=== PATIENT | male | born 1960 | race African-American/Black ===

== ENCOUNTER 2016-02-13 20:33 | Emergency (ER) | payer OTHER ==
[2016-02-13 20:48] VITALS: BP 126/82; PULSE 76; TEMP 98.4; BMI 66.9
--- NOTE | 2016-02-13 21:54 | PDOC ---
History of Present Illness - General Chief Complaint: Chest Pain Stated Complaint: CHEST PAIN Time Seen by Provider: 02/13/16 21:23 History Source: Patient Exam Limitations: No Limitations - History of Present Illness Initial Comments: 02/13/16 21:50 55yo Male patient presents to ED c/o chest pressure throughout the day. Patient reports he was recently admitted 2 weeks ago for irregular heart rate. Patient states he was given Cardizem and dx: with Afib. He does not remember the director of event management name that treated him. He was prescribed medications but states he does not like taking medications, so he has not taking anything except ASA 81 mg yesterday. Patient denies n/v/d, back pain, sweating, diff breathing, fever, dysuria, hematuria, rash, or any other complaints at this time. Dr. Galvan- PCP. Presenting Symptoms: Chest Pain, Other (Chest Pressure) Timing/Duration: reports: constant Severity/Quality: reports: mild Location: reports: substernal Chest Pain Radiation: reports: no radiation Activities at Onset: reports: no specific activity Prior Chest Pain/Cardiac Workup: reports: Echocardiography, Stress Test Modifying Factors: worse with: antacids, breathing, coughing, defecating, eating , exercise, lying down, morphine, movement, nitroglycerin, oxygen, palpation, rest, other Nitro Today/Relief: Yes: no nitro taken today Aspirin Received prior to arrival (Core Measure): Yes: 81 mg x 1, provided at home (Yesterday) Associated Symptoms: Yes: Heartburn. No: Back Pain, Nausea, Vomiting Past History - Travel Traveled outside of the country in the last 30 days: No Close contact w/someone who was outside of country & ill: No - Past Medical History Allergies/Adverse Reactions: Allergies Allergy/AdvReac Type Severity Reaction Status Date / Time No Known Allergies Allergy Verified 02/13/16 20:45 Home Medications: Ambulatory Orders NK [No Known Home Medication] 02/13/16 Cardiac Disorders: Yes (Afib) - Surgical History Abdominal Surgery: Yes (hernia repair) - Immunization History Immunization Up to Date: Yes - Psycho/Social/Smoking Cessation Hx Anxiety: No Suicidal Ideation: No Smoking History: Never smoked Have you smoked in the past 12 months: No Number of Cigarettes Smoked Daily: 0 Information on smoking cessation initiated: No Hx Alcohol Use: No Drug/Substance Use Hx: No Substance Use Type: None Hx Substance Use Treatment: No Cardiac Specific PMH - Complaint Specific PMHX Abdominal Aortic Aneurysm: No Angina: No Cardiac Arrhythmia: No Cardiac Stent: No GERD: No Myocardial Infarction: No Pacemaker: No Pulmonary Embolus: No Valvular Heart Disease: No Peripheral Vascular Disease: No Review of Systems - Review of Systems Able to Perform ROS?: Yes Is the patient limited Occitan proficient: No Constitutional: No: Chills, Fever Respiratory: No: Shortness of Breath, SOB with Exertion Cardiac (ROS): Yes: Chest Pain, Other (Chest Pressure) ABD/GI: No: Constipated, Diarrhea, Nausea, Vomiting : No: Burning, Dysuria Musculoskeletal: No: Back Pain Integumentary: No: Rash Neurological: No: Headache, Numbness, Paresthesia, Tingling All Other Systems: Reviewed and Negative *Physical Exam - Vital Signs Last Vital Signs Temp Pulse Resp BP Pulse Ox 98.4 F 76 14 126/82 98 02/13/16 20:46 02/13/16 20:46 02/13/16 20:46 02/13/16 20:46 02/13/16 20:46 - Physical Exam General Appearance: Yes: Nourished, Appropriately Dressed Neck: positive: Trachea midline, Supple Respiratory/Chest: positive: Lungs Clear, Normal Breath Sounds Cardiovascular: positive: Regular Rhythm, Regular Rate Gastrointestinal/Abdominal: positive: Normal Bowel Sounds, Soft Musculoskeletal: positive: Normal Inspection. negative: CVA Tenderness, Muscle Spasm Extremity: positive: Normal Capillary Refill, Normal Inspection, Normal Range of Motion Integumentary: positive: Normal Color, Dry, Warm Neurologic: positive: event coordinator marketing and sales II-XII NML intact, Fully Oriented, Alert, Normal Mood/ Affect, Normal Response, Motor Strength 5/5 Heart Score/ECG Review - History History: Slightly suspicious - Electrocardiogram EKG: Normal - Age Age: 45-65 - Risk Factors Risk Factors Heart Score: Yes Hx Hypercholesterolemia, Yes Hx Hypertension Based on the list above the patient has:: 1-2 risk factors - Troponin Troponin: </= normal limit - Score Heart Score - Total: 2 - ECG Impressions Normal ECG: Yes Non-specific ST Elevation: No Ischemic Changes: No Bradycardia: No Torsades samuel Pointes: No WPW: No ED Treatment Course - LABORATORY CBC & Chemistry Diagram: 02/13/16 22:30 02/13/16 22:30 - ADDITIONAL ORDERS Additional order review: Laboratory Results 02/13/16 22:30 Sodium 140 Potassium 3.7 Chloride 106 Carbon Dioxide 27 Anion Gap 7 L BUN 16 Creatinine 0.8 Creat Clearance w eGFR > 60 Random Glucose 94 Calcium 8.7 Total Bilirubin 0.6 D AST 12 L ALT 15 Alkaline Phosphatase 65 Creatine Kinase 136 Troponin I < 0.02 Total Protein 7.3 Albumin 3.7 02/13/16 22:30 RBC 5.49 MCV 88.3 MCHC 32.6 RDW 13.1 MPV 8.8 - Medications Given in the ED: ED Medications Discontinued Medications Generic Name Dose Route Start Last Admin Trade Name Freq PRN Reason Stop Dose Admin Aspirin 324 mg 02/13/16 23:24 02/13/16 23:26 Asa - PO 02/13/16 23:25 324 mg ONCE ONE Administration Progress Note - Progress Note Progress Note: Patient report Chest Pain has subsided. Will d/c home. Patient has appointment with PCP tomorrow. Heart score 2. EKG WNL. *DC/Admit/Observation/Transfer Diagnosis at time of Disposition: Chest pain Qualifiers: Chest pain type: unspecified Qualified Code(s): R07.9 - Chest pain, unspecified - Discharge Dispostion Disposition: HOME Condition at time of disposition: Stable Admit: No - Referrals Referrals: Bonnie Galvan [Primary Care Provider] - Brayan Macdonald MD [Staff Physician] - - Patient Instructions Printed Discharge Instructions: DI for Atypical Chest Pain Additional Instructions: FOLLOW UP WITH DR. MACDONALD (CARDIOLOGY). CALL TO SCHEDULE APPOINTMENT. RETURN IF SYMPTOMS WORSEN OR ANY CONCERNS FOR FURTHER EVALUATION. Print Language: JAMAICAN
--- NOTE | 2016-02-13 22:37 | PDOC ---
*Physical Exam - Vital Signs Last Vital Signs Temp Pulse Resp BP Pulse Ox 98.4 F 76 14 126/82 98 02/13/16 20:46 02/13/16 20:46 02/13/16 20:46 02/13/16 20:46 02/13/16 20:46 ED Treatment Course - LABORATORY CBC & Chemistry Diagram: 02/13/16 22:30 02/13/16 22:30 Medical Decision Making - Medical Decision Making 02/13/16 22:37 agree with care from [employer] *DC/Admit/Observation/Transfer Diagnosis at time of Disposition: Chest pain - Discharge Dispostion Disposition: HOME Condition at time of disposition: Stable - Referrals Referrals: Brayan Macdonald MD [Staff Physician] - Bonnie Galvan [Primary Care Provider] - - Patient Instructions Printed Discharge Instructions: DI for Atypical Chest Pain Additional Instructions: FOLLOW UP WITH DR. MACDONALD (CARDIOLOGY). CALL TO SCHEDULE APPOINTMENT. RETURN IF SYMPTOMS WORSEN OR ANY CONCERNS FOR FURTHER EVALUATION. Print Language: WOLOF
[2016-02-13 22:44] LABS: MCH 28.8 pg (25.7-33.7); MCHC 32.6 g/dl (32.0-35.9); MEAN CELL VOLUME 88.3 fl (80-96); MEAN PLT VOLUME 8.8 fl (7.5-11.1); PLATELET COUNT 263 K/MM3 (134-434); RDW 13.1 % (11.9-15.9); WHITE BLOOD COUNT 6.5 K/mm3 (4.0-10.0)
[2016-02-13 23:07] LABS: ALBUMIN 3.7 g/dl (3.4-5.0); ANION GAP 7 (8-16); BILIRUBIN,TOTAL 0.6 mg/dL (0.2-1.0); CALCIUM 8.7 mg/dL (8.5-10.1); CO2 27 mmol/L (21-32); CREATININE 0.8 mg/dL (0.7-1.3); GLUCOSE,RANDOM 94 mg/dL (74-106); SGOT/AST 12 U/L (15-37); SGPT/ALT 15 U/L (12-78); TOT PROT 7.3 g/dl (6.4-8.2)
[2016-02-13 23:10] LABS: ALK PHOS 65 U/L (45-117); TROPONIN I < 0.02 ng/ml (0.00-0.05)
[2016-02-13] MEDS ORDERED: ASPIRIN 81 MG CHEWABLE TABLETS PO ONE (23:24)
[2016-02-14] MEDS ORDERED: ASPIRIN 325 MG TABLET ONE (00:23)
--- NOTE | 2016-02-14 12:12 | EKG ---
Test Reason : Blood Pressure : / mmHG Vent. Rate : 080 BPM Atrial Rate : 080 BPM P-R Int : 162 ms QRS Dur : 094 ms QT Int : 370 ms P-R-T Axes : 049 -06 032 degrees QTc Int : 426 ms NORMAL SINUS RHYTHM NONSPECIFIC T WAVE ABNORMALITY ABNORMAL ECG WHEN COMPARED WITH ECG OF 19-JAN-2016 09:02, NO SIGNIFICANT CHANGE WAS FOUND Confirmed by DEIRDRE CUEVAS MD ([id number]) on 02/14/2016 12:11:41 PM Referred By: Confirmed By:DEIRDRE CUEVAS MD
== END 2016-02-14 00:20 | disposition home or self-care (01) ==
LOC: JER 20:33
DX: R07.9 Chest pain, unspecified (principal); I48.91 Unspecified atrial fibrillation
CPT/HCPCS: 36415; 80053; 82550; 84484; 85027; 93005; 93010; 99281-25

== ENCOUNTER 2019-05-07 11:19 | Emergency (ER) | payer OTHER ==
[2019-05-07 11:32] VITALS: BP 102/78; PULSE 85; TEMP 97.2
--- NOTE | 2019-05-07 11:37 | PDOC ---
History of Present Illness - General Stated Complaint: COUGH Time Seen by Provider: 05/07/19 11:31 History Source: Patient - History of Present Illness Timing/Duration: reports: other, week Associated Symptoms: reports: cough, fever/chills Past History - Past Medical History Allergies/Adverse Reactions: Allergies Allergy/AdvReac Type Severity Reaction Status Date / Time No Known Allergies Allergy Verified 02/13/16 20:45 Home Medications: Ambulatory Orders NK [No Known Home Medication] 02/13/16 Cardiac Disorders: Yes (Afib) HTN: Yes Hypercholesterolemia: Yes - Surgical History Abdominal Surgery: Yes (hernia repair) - Immunization History Immunization Up to Date: Yes - Psycho Social/Smoking Cessation Hx Smoking History: Never smoked Have you smoked in the past 12 months: No Number of Cigarettes Smoked Daily: 0 Hx Alcohol Use: No Drug/Substance Use Hx: No Substance Use Type: None Hx Substance Use Treatment: No Respiratory Specific PMHX - Complaint Specific PMHX Hx Pulmonary Embolus: No Review of Systems - Review of Systems Constitutional: Yes: Fever Respiratory: Yes: Cough. No: Shortness of Breath *Physical Exam - Physical Exam General Appearance: Yes: Appropriately Dressed. No: Apparent Distress HEENT: positive: Normal ENT Inspection, Normal Voice, TMs Normal, Pharynx Normal Neck: positive: Supple. negative: Lymphadenopathy (R), Lymphadenopathy (L) Respiratory/Chest: positive: Lungs Clear, Normal Breath Sounds. negative: Respiratory Distress Cardiovascular: positive: Regular Rate, S1, S2 Integumentary: positive: Dry, Warm Neurologic: positive: Fully Oriented, Alert, Normal Mood/Affect Medical Decision Making - Medical Decision Making 05/07/19 11:43 59 yo m, no sig hx, works in lab at [employer], here w/ dry cough x 1 week w/ malaise/weakness. No aches, sob or fever see exam Viral syndrome No sob or e/o resp distress, afebrile w/ clear chest/lungs Dc to home quarantine until asx as d/w pt To return for sob as discussed Discharge - Discharge Information Problems reviewed: Yes Clinical Impression/Diagnosis: URI (upper respiratory infection) Qualifiers: URI type: unspecified viral URI Qualified Code(s): J06.9 - Acute upper respiratory infection, unspecified Condition: Good Disposition: HOME - Follow up/Referral - Patient Discharge Instructions Patient Printed Discharge Instructions: [facility]-Coronavirus Instructions, [facility] COVID-19 Isolation Protocol - Post Discharge Activity Work/Back to School Note: Back to Work
== END 2019-05-07 12:35 | disposition home or self-care (01) ==
LOC: JER 11:19
DX: J06.9 Acute upper respiratory infection, unspecified (principal)
CPT/HCPCS: 99282-25

== ENCOUNTER 2021-11-23 08:57 | Emergency (ER) | payer OTHER ==
[2021-11-23 09:09] VITALS: BP 130/79; PULSE 58; RESP 18; TEMP 97.6; BMI 30.7
[2021-11-23] MEDS ORDERED: IBUPROFEN 600 MG TABLET (FP) PO ONE ×2 (10:05→10:19)
== END 2021-11-23 10:25 | disposition home or self-care (01) ==
LOC: JER 08:57 → JERFT 08:57
DX: M79.645 Pain in left finger(s) (principal)
CPT/HCPCS: 73130-TC-LT-FY; 99283-25

== ENCOUNTER 2022-12-25 15:04 | Emergency (ER) | payer OTHER ==
[2022-12-25 15:10] VITALS: BP 128/81; PULSE 90; RESP 18; TEMP 98; BMI 31.8
[2022-12-25] MEDS ORDERED: IBUPROFEN 600 MG TABLET (FP) PO ONE ×2 (15:41→15:43)
== END 2022-12-25 15:47 | disposition home or self-care (01) ==
LOC: JERFT 15:04
DX: M77.01 Medial epicondylitis, right elbow (principal); M25.521 Pain in right elbow
CPT/HCPCS: 99283-25

== ENCOUNTER 2023-04-13 13:18 | Emergency (ER) | payer OTHER ==
[2023-04-13 13:30] VITALS: BP 122/80; PULSE 70; RESP 18; TEMP 98.9; BMI 31.8
== END 2023-04-13 14:14 | disposition home or self-care (01) ==
LOC: JERFT 13:18
DX: S86.011A Strain of right Achilles tendon, initial encounter (principal); X50.1XXA Overexertion from prolonged static or awkward postures, initial encounter
CPT/HCPCS: 99283-25

== ENCOUNTER 2024-04-21 17:01 | Observation (INO) | payer OTHER ==
[2024-04-21 17:08] VITALS: BMI 31.1
[2024-04-21 18:26] LABS: BASO % 0.6 % (0-2.0); HEMOGLOBIN 16.3 GM/dL (11.7-16.9); LYMPH % 50.9 % (8-40); MCH 29.9 pg (25.7-33.7); MCHC 33.2 g/dl (32.0-35.9); MEAN CELL VOLUME 90.2 fl (80-96); MEAN PLT VOLUME 9.6 fl (7.5-11.1); MONO % 10.5 % (3.8-10.2); PLATELET COUNT 235 10^3/uL (134-434); RBC 5.44 M/mm3 (4.00-5.60); RDW 13.4 % (11.9-15.9)
[2024-04-21] MEDS ORDERED: ACETAMINOPHEN INJECTION 100 ML ONE (18:26)
[2024-04-21] MEDS: ACETAMINOPHEN 1000 MG/100 ML BAG IVPB ONE (18:28)
[2024-04-21] MEDS: SODIUM CHLORIDE 500 ML IV STA (18:28)
[2024-04-21 18:30] LABS: EPI CELLS 17 /uL (0-25.1); HYALINE CASTS 0 /uL (0-3.1); URINE APPEARANCE TURBID; URINE BACTERIA 3 /uL (0-1359); URINE BILIRUBIN 1+ (NEGATIVE); URINE COLOR ORANGE; URINE GLUCOSE (UA) NEGATIVE (NEGATIVE); URINE KETONE NEGATIVE (NEGATIVE); URINE LEUK ESTERASE 1+ (NEGATIVE); URINE NITRITE NEGATIVE (NEGATIVE); URINE PROTEIN 2+ (NEGATIVE); URINE UROBILINOGEN 0.2 mg/dL (0.2-1.0); URINE WBC 89 /uL (0-25.8)
[2024-04-21 18:36] LABS: INR 1.24 (0.83-1.09); PROTHROMBIN TIME (PATIENT) 13.6 SEC (9.7-13.0)
[2024-04-21 18:39] LABS: ACTIVATED PTT 32.9 SECONDS (25.2-36.5)
[2024-04-21 18:51] LABS: POTASSIUM 4.2 mmol/L (3.5-5.1)
[2024-04-21 18:53] LABS: BLOOD UREA NITROGEN 16.4 mg/dL (7-18)
[2024-04-21 18:54] LABS: CALCIUM 9.5 mg/dL (8.5-10.1); URINE RBC 5686.9 /uL (0-23.9)
[2024-04-21 18:58] LABS: CREATININE 0.9 mg/dL (0.55-1.3)
[2024-04-21 18:59] LABS: BILIRUBIN,TOTAL 0.4 mg/dL (0.2-1)
[2024-04-21 19:00] LABS: TOT PROT 7.6 g/dl (6.4-8.2)
[2024-04-21] MEDS ORDERED: TAMSULOSIN HCL 0.4 MG CAP ONE (20:54)
[2024-04-21] MEDS ORDERED: CEFTRIAXONE 1 G/50 ML PREMIX 50 ML IVPB ONE (20:54)
[2024-04-21] MEDS: TAMSULOSIN HCL 0.4 MG CAP PO ONE (20:59)
[2024-04-21] MEDS: CEFTRIAXONE 1 GM in DEXTROSE 5%-WATER - 100 ML IVPB ONE (20:59)
[2024-04-22] MEDS: METOPROLOL TARTRATE 25 MG TABLET (FP) PO SCH (00:24)
[2024-04-22] MEDS: ATORVASTATIN CA 40 MG TABLET (FP) PO SCH (00:24)
[2024-04-22] MEDS: SODIUM CHLORIDE 1,000 ML IV SCH (00:25)
[2024-04-22 08:23] LABS: BASO % 0.6 % (0-2.0); EOS % 2.9 % (0-4.5); HEMATOCRIT 44.4 % (35.4-49); HEMOGLOBIN 14.7 GM/dL (11.7-16.9); LYMPH % 49.3 % (8-40); MCH 30.1 pg (25.7-33.7); MCHC 33.1 g/dl (32.0-35.9); MEAN PLT VOLUME 9.3 fl (7.5-11.1); MONO % 11.9 % (3.8-10.2); NEUT % 35.3 % (42.8-82.8); PLATELET COUNT 184 10^3/uL (134-434); RBC 4.88 M/mm3 (4.00-5.60); RDW 12.9 % (11.9-15.9); WHITE BLOOD COUNT 5.2 K/mm3 (4.0-10.0)
[2024-04-22 08:35] LABS: INR 1.23 (0.83-1.09); PROTHROMBIN TIME (PATIENT) 13.4 SEC (9.7-13.0)
[2024-04-22 08:43] LABS: POTASSIUM 3.7 mmol/L (3.5-5.1)
[2024-04-22 08:57] LABS: CALCIUM 8.7 mg/dL (8.5-10.1)
[2024-04-22 08:58] LABS: ALBUMIN 3.3 g/dl (3.4-5.0); BLOOD UREA NITROGEN 14.5 mg/dL (7-18)
[2024-04-22 09:01] LABS: CREATININE 0.8 mg/dL (0.55-1.3); PHOSPHOROUS 3.9 mg/dL (2.5-4.9)
[2024-04-22 09:02] LABS: BILIRUBIN,TOTAL 0.8 mg/dL (0.2-1); TOT PROT 6.3 g/dl (6.4-8.2)
[2024-04-22] MEDS: DORZOLAMIDE 2% HCL OPHTHALMIC SOLUTION 10 ML BOTTLE OU SCH (10:29)
[2024-04-22] MEDS: TAMSULOSIN HCL 0.4 MG CAP PO SCH (10:29)
[2024-04-22] MEDS: BRIMONIDINE TARTRATE 0.2% OPHTHALMIC 5 ML BOTTLE OU SCH (10:29)
[2024-04-22] MEDS: DEXTROSE 5%-0.45% SALINE 1,000 ML IV SCH (10:30)
[2024-04-22] MEDS: CEFTRIAXONE 1 G/50 ML PREMIX 50 ML IVPB SCH (10:31)
[2024-04-22] MEDS ORDERED: ACETAMINOPHEN 325 MG TABLET (FP) PO PRN (16:13)
[2024-04-22] MEDS ORDERED: ATORVASTATIN CA 40 MG TABLET (FP) PO SCH (22:00)
[2024-04-23 08:34] LABS: HEMATOCRIT 42.5 % (35.4-49); HEMOGLOBIN 14.6 GM/dL (11.7-16.9); MCH 30.8 pg (25.7-33.7); MCHC 34.2 g/dl (32.0-35.9); MEAN PLT VOLUME 9.6 fl (7.5-11.1); PLATELET COUNT 194 10^3/uL (134-434); RBC 4.72 M/mm3 (4.00-5.60); RDW 12.9 % (11.9-15.9); WHITE BLOOD COUNT 5.3 K/mm3 (4.0-10.0)
[2024-04-23 08:49] LABS: POTASSIUM 3.7 mmol/L (3.5-5.1)
[2024-04-23 08:52] LABS: CALCIUM 8.5 mg/dL (8.5-10.1)
[2024-04-23 08:53] LABS: ALBUMIN 3.2 g/dl (3.4-5.0); BLOOD UREA NITROGEN 10.3 mg/dL (7-18)
[2024-04-23 08:56] LABS: CREATININE 0.8 mg/dL (0.55-1.3)
[2024-04-23 08:57] LABS: BILIRUBIN,TOTAL 0.6 mg/dL (0.2-1)
[2024-04-23 08:58] LABS: TOT PROT 6.2 g/dl (6.4-8.2)
[2024-04-23 10:57] VITALS: BP 147/91; PULSE 75; RESP 19; TEMP 97.7
== END 2024-04-23 14:01 | disposition home or self-care (01) ==
LOC: JER 17:01 → UNDOADMOB 20:48 → JERBED 20:48 → INTOOBSV 21:54 → OBSVTOIN 21:54 → JERBED 23:09 → J8W 23:09 → JERBED 04-22 18:45
PROVIDERS: ADMIT Internal Medicine; ATTEND Physician Assistant
PROC: 3E03329 Introduction of Other Anti-infective into Peripheral Vein, Percutaneous Approach (ICD-10-PCS; principal; 2024-04-22)
PROC: 3E0337Z Introduction of Electrolytic and Water Balance Substance into Peripheral Vein, Percutaneous Approach (ICD-10-PCS; 2024-04-22)
DX: N13.2 Hydronephrosis with renal and ureteral calculous obstruction (principal); N10 Acute pyelonephritis; I48.91 Unspecified atrial fibrillation; N39.0 Urinary tract infection, site not specified; Z79.01 Long term (current) use of anticoagulants; H40.9 Unspecified glaucoma; R91.1 Solitary pulmonary nodule; Z87.442 Personal history of urinary calculi; R94.8 Abnormal results of function studies of other organs and systems
CPT/HCPCS: 36415; 74176-TC; 80053; 81003; 83735; 84100; 85025; 85027; 85610; 85730; 86850; 86900; 86901; 99285-25; G0378